=== PATIENT | male | born 1970 | race Caucasian/White ===

== ENCOUNTER 2018-08-30 20:25 | Inpatient (IN) | payer OTHER ==
[2018-08-30] MEDS: HYDROCODONE/APAP (10/325) TAB PO (21:59)
[2018-08-31 01:35] LABS: ADD MAN DIFF? NO
[2018-08-31 01:38] LABS: BASOPHILS % 0.3 % (0.0-2.0); EOSINOPHILS # 0.1 10^3/ul (0.0-0.5); EOSINOPHILS % 0.9 % (0.0-7.0); HEMATOCRIT 44.2 % (42.0-52.0); HEMOGLOBIN 15.3 g/dl (14.0-18.0); LYMPHOCYTES # 1.8 10^3/ul (0.8-2.9); LYMPHOCYTES % 16.8 % (15.0-51.0); MEAN CORPUSCULAR HEMOGLOBIN 29.5 pg (29.0-33.0); MEAN CORPUSCULAR HGB CONC 34.6 g/dl (32.0-37.0); MEAN CORPUSCULAR VOLUME 85.2 fl (82.0-101.0); MEAN PLATELET VOLUME 10.4 fl (7.4-10.4); MONOCYTE # 0.6 10^3/ul (0.3-0.9); MONOCYTES % 5.5 % (0.0-11.0); NEUTROPHIL # 8.1 10^3/ul (1.6-7.5); NEUTROPHILS % 76.2 % (39.0-77.0); PLATELET COUNT 158 10^3/UL (140-415); RED BLOOD COUNT 5.19 10^6/ul (4.70-6.10)
[2018-08-31 01:38] LABS: WHITE BLOOD COUNT 10.6 10^3/ul (4.8-10.8)
[2018-08-31 01:57] LABS: PROTIME 12.3 Sec (11.9-14.9)
[2018-08-31 02:09] LABS: ANION GAP 8 (5-13); CALCIUM 9.9 mg/dl (8.4-10.2); CARBON DIOXIDE 27 mmol/L (21-31); CHLORIDE 108 mmol/L (97-110); CREATININE 1.01 mg/dl (0.61-1.24); Estimated GFR > 60 mL/min (>60); GLUCOSE 133 mg/dl (70-220); SODIUM 143 mmol/L (135-144)
[2018-08-31 02:10] LABS: BLOOD UREA NITROGEN 19 mg/dl (7-20)
[2018-08-31] MEDS ORDERED: ONDANSETRON 4 MG INJ IV (03:30)
[2018-08-31] MEDS ORDERED: ACETAMINOPHEN 325 MG TAB PO ×2 (03:30→04:00)
[2018-08-31] MEDS ORDERED: NACL 0.9% 3 ML SYG IV (04:00)
[2018-08-31] MEDS ORDERED: BISACODYL (EC) 5 MG TAB PO (04:00)
[2018-08-31] MEDS ORDERED: MAGNESIUM HYDROXIDE 30ML CUP PO (04:00)
[2018-08-31] MEDS ORDERED: DOCUSATE SODIUM 100 MG CAP PO (04:00)
[2018-08-31] MEDS ORDERED: ONDANSETRON 4 MG TAB PO (04:00)
[2018-08-31] MEDS: FAMOTIDINE 20 MG TAB PO ×3 (04:42→20:45)
[2018-08-31] MEDS: HYDROCODONE/APAP (5/325) TAB PO ×5 (04:43→20:45)
[2018-08-31 05:52] LABS: ADD MAN DIFF? NO
[2018-08-31 05:55] LABS: WHITE BLOOD COUNT 9.6 10^3/ul (4.8-10.8)
[2018-08-31 05:55] LABS: BASOPHILS % 0.3 % (0.0-2.0); EOSINOPHILS # 0.2 10^3/ul (0.0-0.5); EOSINOPHILS % 1.7 % (0.0-7.0); HEMATOCRIT 42.6 % (42.0-52.0); HEMOGLOBIN 14.8 g/dl (14.0-18.0); LYMPHOCYTES # 2.2 10^3/ul (0.8-2.9); LYMPHOCYTES % 22.8 % (15.0-51.0); MEAN CORPUSCULAR HEMOGLOBIN 29.5 pg (29.0-33.0); MEAN CORPUSCULAR HGB CONC 34.7 g/dl (32.0-37.0); MEAN PLATELET VOLUME 11.2 fl (7.4-10.4); MONOCYTE # 0.8 10^3/ul (0.3-0.9); MONOCYTES % 8.1 % (0.0-11.0); NEUTROPHIL # 6.4 10^3/ul (1.6-7.5); NEUTROPHILS % 66.8 % (39.0-77.0); PLATELET COUNT 170 10^3/UL (140-415); RED BLOOD COUNT 5.01 10^6/ul (4.70-6.10); RED CELL DISTRIBUTION WIDTH 13.2 % (11.5-14.5)
[2018-08-31 06:17] LABS: HEMOGLOBIN A1C 4.9 % (0-5.9)
[2018-08-31 06:24] LABS: ANION GAP 8 (5-13); BLOOD UREA NITROGEN 21 mg/dl (7-20); CALCIUM 9.6 mg/dl (8.4-10.2); CARBON DIOXIDE 26 mmol/L (21-31); CHLORIDE 109 mmol/L (97-110); CREATININE 1.05 mg/dl (0.61-1.24); Estimated GFR > 60 mL/min (>60); GLUCOSE 117 mg/dl (70-220); POTASSIUM 3.5 mmol/L (3.5-5.1); SODIUM 143 mmol/L (135-144)
[2018-09-01] MEDS: FAMOTIDINE 20 MG TAB PO ×2 (10:02→20:34)
[2018-09-01] MEDS: HYDROCODONE/APAP (5/325) TAB PO ×2 (10:02→19:15)
[2018-09-02] MEDS: FAMOTIDINE 20 MG TAB PO (09:00)
[2018-09-02] MEDS: HYDROCODONE/APAP (5/325) TAB PO (09:32)
[2018-09-02] MEDS ORDERED: HYDROCODONE/APAP (5/325) TAB PO ×2 (14:30)
== END 2018-09-02 17:50 | disposition home health service (06) | DRG 563 ==
LOC: FTE 20:25 → MS1 08-31 03:10
PROC: 2W3DX1Z Immobilization of Left Lower Arm using Splint (ICD-10-PCS; principal; 2018-08-31)
PROC: 2W3MX1Z Immobilization of Left Lower Extremity using Splint (ICD-10-PCS; 2018-08-31)
DX: S52.572A Other intraarticular fracture of lower end of left radius, initial encounter for closed fracture (principal); S82.145A Nondisplaced bicondylar fracture of left tibia, initial encounter for closed fracture; S62.112A Displaced fracture of triquetrum [cuneiform] bone, left wrist, initial encounter for closed fracture; S83.92XA Sprain of unspecified site of left knee, initial encounter; S09.90XA Unspecified injury of head, initial encounter; S00.83XA Contusion of other part of head, initial encounter; M54.2 Cervicalgia; Y00.XXXA Assault by blunt object, initial encounter; Y92.89 Other specified places as the place of occurrence of the external cause; F17.200 Nicotine dependence, unspecified, uncomplicated
CPT/HCPCS: 36415; 70450; 70490; 73090; 73130-LT; 73562; 73700; 73721; 80048; 83036; 85025; 85610; 86850; 86900; 86901; 93005; 97116; 97162; 99285-25